=== PATIENT | female | born 1970 | race Caucasian/White ===

== ENCOUNTER → 2018-09-30 | Outpatient (CLI) | payer OTHER ==
[~2018-09-30] MED LIST: FAMO-67 PO; HYDR-653 PO; MULT1CAP59 PO; ZOLP-350 PO; mvi
--- NOTE | 2018-09-30 16:13 | RADIOLOGY IMAGING REPORT ---
FACILITY: [facility] - [place] PATIENT NAME: VANESSA GOLDBERG : [id number] MR: [id number] V: [id number] EXAM DATE: ORDERING PHYSICIAN: LAURITA CALLE TECHNOLOGIST: Jayne Silver PROCEDURE:BILATERAL DIGITAL SCREENING MAMMOGRAM WITH CAD ASSISTED INTERPRETATION & 3D TOMOSYNTHESIS COMPARISON:Prior mammogram 09/28/17. INDICATIONS:SCREENING FINDINGS: There is scattered fibroglandular tissue. Notably 2 Left MLO views were obtained secondary to poor visualization of the pectoralis muscle on the first MLO acquisition. No suspicious mass, microcalcification or architectural distortion. No change compared to prior. DIAGNOSTIC CATEGORY 1--NEGATIVE. RECOMMENDATIONS: ROUTINE MAMMOGRAM AND CLINICAL EVALUATION. IMPRESSION: BIRADS 1: Negative. Dictated by: Ethan Montelongo on 09/30/2018 at 15:15 Transcribed by: DEISY on 09/30/2018 at 15:21 Approved by: Ethan Montelongo on 09/30/2018 at 16:12 [facility]
== END ==
LOC: MAMO 01:39
PROVIDERS: ATTEND Nurse Practitioner Family
DX: Z12.31 Encounter for screening mammogram for malignant neoplasm of breast (principal)
CPT/HCPCS: 77063; 77067